=== PATIENT | female | born 2000 | race Caucasian/White ===

== ENCOUNTER 2022-10-30 10:14 | Outpatient (CLI) | payer OTHER, MEDICAID, SELFPAY ==
[2022-10-30 13:42] LABS: Clue Cells >20% Clue Cells Seen (None Seen); Trichomonas No Trichomonas Seen (None Seen); Yeast No Yeast Seen (None Seen)
[2022-10-30 15:02] LABS: GC DNA Amplified* NOT DETECTED (No Detected)
[2022-10-30 16:29] LABS: Chlamydia DNA Amplified* DETECTED (No Detected)
== END 2022-10-30 10:15 | disposition home or self-care (01) ==
PROVIDERS: PCP Family Medicine; Visit Provider Family Medicine
DX: N89.8 Other specified noninflammatory disorders of vagina (principal); Z11.3 Encounter for screening for infections with a predominantly sexual mode of transmission
CPT/HCPCS: 80048; 84443; 85025; 87210; 87491; 87591

== ENCOUNTER 2023-11-19 10:52 | Outpatient (CLI) | payer OTHER, MEDICAID, SELFPAY ==
--- OUTSIDE RECORDS SUMMARY | 2023-11-19 10:56 | XMS_ITS | Encounter Summary ---
Author Organization [facility] Address [address] [place] [address] Care Team Providers Care Dike Supervisor Name Role Phone Breezy Brown MD Primary Care Provider Augustine Penn MD Unavailable Zachary Boo MD Unavailable Steffany Ortega RN Unavailable [phone] Natalie Bolivar NP Unavailable Jules Miller MD Unavailable [phone] Natalie Bolivar NP Unavailable Reason for Visit * Reason Onset Date Comments Prior Auth - Medication 03/10/2023 DEXCOM G 6 TRANSMITTER- DENIED Encounter Details Date Type Department Care Team (Late st Contact Info) Description 03/10/2023 [facility] [place] [address] [facility] [facility] [address] [place] [address] Natalie Bolivar ALTERATION TAILOR [address] [place] [address] Prior Auth - Medication (DEXCOM G6 TRANSMITTER- DENIED ) Social History Tobacco Use Types Packs/Day Years Used Date Smoking Tobacco: Never Smokeless Tobacco: Never Alcohol Use Standard Drinks/Week Comments Not Asked 0 (1 standard drink = 0.6 oz pur e alcohol) PHQ-2 Answer Date Recorded PHQ-2 Score 0 06/28/2022 Adolescent Education Answer Date Record ed Getting School Help Needed Not on file 02/02 Sex and Gender Information Value Date Recorded Sex Assigned at Female 04/03/2022 9:46 AM STAFF TOXICOLOGIST Gender Identity Female 04/03/2022 9:46 AM STAFF TOXICOLOGIST Sexual Orientation Straight 04/03/2022 9: 46 AM STAFF TOXICOLOGIST documented as of this encounter Miscellaneous Notes * Telephone Encounter - Fadi Mckeon - 03/12/2023 3:54 PM CDT Images from the original note were not included. PRIOR AUTHORIZATION DENIED Medication: DEXCOM G6 TRANSMITTER [facility] [place] Company[facility] [employer] [facility] - Denial Date: 03/12/2023 Denial Rational: Not covered under the pt's pharmacy benefit. Appeal Information: If provider would like to appeal please provide a letter of medical necessity. * Telephone Encounter - Fadi Mckeon - 03/12/2023 2:59 PM CDT Images from the original note were not included. Central Prior Authorization Team PA Initiation Medication: DEXCOM G6 TRANSMITTER [facility] Insurance Company: [employer] ([facility]) - Pharmacy Filling the Rx: [facility] [place], [place] - [address] Filling Pharmacy Filling Pharmacy Fax: Start Date: 03/12/2023 * Telephone Encounter - Stephanie Prasad - 03/10/2023 9:49 AM CDT Images from the original note were not included. documented in this encounter Plan of Treatment Not on file documented as of this encounter Visit Diagnoses Not on filedocumented in this encounter Care Teams Dike Supervisor Relationship Specialty Start Date End Date Breezy Brown MD PCP - General Family Practice 02/09/22 Augustine Penn MD [address] [address] Pediatrics 03/04/16 Zachary Boo MD 6 [place] [address] Dermatology 03/04/16 Steffany Ortega, RONNELL Nurse Coordinator 03/04/16 Natalie Bolivar, ALTERATION TAILOR [address] [place] [address] Assigned Pediatric Specialist Provider 03/11/21 06/04/23 Jules Miller MD [address] [address] Assigned PCP 04/13/22 06/04/23 Natalie Bolivar, ALTERATION TAILOR [address] [place] [address] Assigned Pediatric Specialist Provider 06/13/23 documented as of this encounter
--- OUTSIDE RECORDS SUMMARY | 2023-11-19 10:56 | XMS_ITS | Encounter Summary ---
Author Organization [facility] Address [address] [place] [address]. [place] [address] Care Team Providers Care Typing Bookkeeper Name Role Phone Breezy Brown MD Primary Care Provider Augustine Penn MD Unavailable [phone] Zachary Boo MD Unavailable [phone] Steffany Ortega RN Unavailable [phone] Natalie Bolivar NP Unavailable [phone] Jules Miller MD Unavailable [phone] Jules Miller MD Unavailable [phone] Natalie Bolivar NP Unavailable [phone] Reason for Visit * Reason Onset Date Comments Refill Request 03/05/2022 Encounter Details Date Type Department Care Team (Late st Contact Info) Description 03/05/2022 [facility] [place] [address] [facility] [address] [place] [address] Jules Miller MD [address] [place] [address] [address] [place] [address] Refill Request Social History Tobacco Use Types Packs/Day Years Used Date Smoking Tobacco: Never Smokeless Tobacco: Never Alcohol Use Standard Drinks/Week Comments Not Asked 0 (1 standard drink = 0.6 oz pur e alcohol) PHQ-2 Answer Date Recorded PHQ-2 Score 0 07/25/2020 Sex and Gender Information Value Date Recorded Sex Assigned at Female 04/03/2022 9:46 AM DECATIZER Gender Identity Female 04/03/2022 9:46 AM DECATIZER Sexual Orientation Straight 04/03/2022 9: 46 AM DECATIZER documented as of this encounter Plan of Treatment Not on file documented as of this encounter Visit Diagnoses Not on filedocumented in this encounter Care Teams Typing Bookkeeper Relationship Specialty Start Date End Date Breezy Brown MD PCP - General Family Practice 02/09/22 Augustine Penn MD [address] [address] Pediatrics 03/04/16 Zachary Boo MD [address] [place], [place] [address] Dermatology 03/04/16 Steffany Ortega, RN Nurse Coordinator 03/04/16 Natalie Bolivar NP [address] [place] [address] Assigned Pediatric Specialist Provider 03/11/21 06/04/23 Jules Miller MD [address] [id number] Assigned PCP 03/04/21 04/12/22 Jules Miller MD [address] [address] Assigned PCP 04/13/22 06/04/23 Natalie Bolivar NP [address] [place] [address] Assigned Pediatric Specialist Provider 06/13/23 documented as of this encounter
--- OUTSIDE RECORDS SUMMARY | 2023-11-19 10:56 | XMS_ITS | Encounter Summary ---
Author Organization [place] Address [address] [place] [address] Care Team Providers Care Ux Information Architect Name Role Phone Breezy Brown MD Primary Care Provider Augustine Penn MD Unavailable Zachary Boo MD Unavailable Steffany Ortega RN Unavailable [phone] Natalie Bolivar NP Unavailable [phone] Jules Miller MD Unavailable [phone] Natalie Bolivar NP Unavailable Encounter Details Date Type Department Care Team (Late st Contact Info) Description 06/28/2022 [facility] [place] [address] [facility] [address] [place] [address] Natalie Bolivar, FINISHING TRIMMER [address] [place] [address] Social History Tobacco Use Types Packs/Day Years Used Date Smoking Tobacco: Never Smokeless Tobacco: Never Alcohol Use Standard Drinks/Week Comments Not Asked 0 (1 standard drink = 0.6 oz pur e alcohol) PHQ-2 Answer Date Recorded PHQ-2 Score 0 06/28/2022 Sex and Gender Information Value Date Recorded Sex Assigned at Female 04/03/2022 9:46 AM RADIOTELEPHONE TECHNICAL OPERATOR Gender Identity Female 04/03/2022 9:46 AM RADIOTELEPHONE TECHNICAL OPERATOR Sexual Orientation Straight 04/03/2022 9: 46 AM RADIOTELEPHONE TECHNICAL OPERATOR COVID-19 Exposure Response Date Recorded In the last 10 days, have yo u been in contact with someone who was confirmed or suspected to have Coronavirus/COVID-19? No / Unsure 06/28/2022 10:58 AM RADIOTELEPHONE TECHNICAL OPERATOR documented as of this encounter Plan of Treatment Not on file documented as of this encounter Visit Diagnoses Not on filedocumented in this encounter Care Teams Ux Information Architect Relationship Specialty Start Date End Date Breezy Brown MD PCP - General Family Practice 02/09/22 Augustine Penn MD [address] [place] [id number] Pediatrics 03/04/16 Zachary Boo MD 6 [place], [place] [address] Dermatology 03/04/16 Steffany Ortega RN Nurse Coordinator 03/04/16 Natalie Bolivar FINISHING TRIMMER [address] [place] [address] Assigned Pediatric Specialist Provider 03/11/21 06/04/23 Jules Miller MD [address] [address] Assigned PCP 04/13/22 06/04/23 Natalie Bolivar FINISHING TRIMMER [address] [place] [address] Assigned Pediatric Specialist Provider 06/13/23 documented as of this encounter
--- OUTSIDE RECORDS SUMMARY | 2023-11-19 10:56 | XMS_ITS | Clinical Summary ---
Author Organization [facility] Address [place], [place] [address] Care Team Providers Care Relations Specialist Name Role Phone Augustine Penn MD Unavailable Chastity Cardenas OD Unavailable [phone] Pcp, No Primary Care Provider Unavailabl e Allergies Active Allergy Reactions Criticality Noted Date Comments Lactose 10/13/2008 Medications Medication Sig Dispensed Refills Start Date End Date Status cetirizine (ZYRTEC) 10 mg tabletIndications:A llergic rhinitis TAKE ONE TABLET BY MOUTH EVERY DAY 90 tablet 2 09/12/2017 Active ARIPiprazole (ABILIFY) 5 mg tabletIndications:M ood disorder (HC) Take 1 tablet by mouth once daily. 30 tablet 2 02/26/2019 Active Additional Information Patient taking differently: 2 mgOral DAILY, Reported on 12/16/2022 Ketone Blood Test strp Check for ketones when two consecutive blood sugars are greater than 300 and/or at time of sickness/vomiting 05/27/2018 Active glucagon 3 mg/actuation spry Inhale 3 mg in the nostril(s). 04/20/2019 Active LANTUS SOLOSTAR U-100 INSULIN 100 unit/mL (3 mL) pen INJECT 30 UNITS DAILY WHEN OFF OF INSULIN PUMP 01/07/2020 Active Insulin [place], Disposable, (CHAU PEN NEEDLE) 32 gauge x 5/32 Use 6 daily or as directed. 12/03/2019 Active lisdexamfetamine (VYVANSE) 40 mg capsuleIndications: attention-deficit hyperactivity disorder Take 40 mg by mouth once daily.Indications: attention deficit disorder with hyperactivity Active levothyroxine (SYNTHROID) 112 mcg tablet Take 56 mcg by mouth once daily. 07/27/2020 Active norgestimate-ethiny l estradiol, 0.25-35 mg-mcg, (ORTHO-CYCLEN) 0.25-35 mg-mcg tablet Take 1 Tablet by mouth once daily. 07/29/2020 Active Vyvanse 10 mg capsule TAKE ONE CAPSULE BY MOUTH EVERY DAY FOR 30 DAYS 04/05/2022 Active venlafaxine (EFFEXOR XR) 150 mg Extended-Release capsule Take 150 mg by mouth. 04/03/2022 Active insulin lispro, U-100, (HUMALOG KWIKPEN; ADMELOG SOLOSTAR) 100 unit/mL inpn pen Inject 100 units subcutaneous each time if needed (When she eats). Her pump gives her insulin continuously. 11/27/2022 Active ondansetron (ZOFRAN) 4 mg tabletIndications:N ausea and vomiting due to hyperglycemia Take 1 Tablet (4 mg) by mouth every 8 hours if needed for Nausea/Vomiting. 5 Tablet 1 01/01/2023 Active Active Problems Problem Noted Date Diagnosed Date Controlled substance agreement signed 09/14/2018 Overview: Signed 09/14/18 Yael Vazquez Psychiatry Adjustment disorder with mix ed disturbance of emotions and conduct 12/01/2017 Mood disorder 10/09/2017 Type 1 diabetes mellitus without complication Overview: onset age 7-Dr Augustine Penn [facility] Attention deficit hyperactiv ity disorder (ADHD), combined type 06/13/2015 Hypothyroidism 03/23/2015 Empty sella syndrome 11/09/2013 Delayed growth and development 02/21/2013 Growth hormone deficiency 02/21/2013 Chronic constipation 01/14/2012 Adjustment disorder with mixed anxiety and depre ssed mood 04/15/2008 Overview: Bianca Ortega therapist in [place] Lactose intolerance Overview: endoscopy-neg for celiac Resolved Problems Problem Noted Date Diagnosed Date Resolved Date Heart murmur 01/08/2016 11/27/2016 Overview: Has had echocardiogram, EKG and seen Cardiology 01/2010 Skin lesion 11/28/2015 11/27/2016 Overview: Overview: 02/24 - 1.4 X 0.8 cm 11/28/15 - 1.5 X 1.0 cm DM type 1 (diabetes mellitus, type 1) 06/25/2013 06/13/2015 Unspecified hyperkinetic syn drome of childhood 04/28/2008 06/13/2015 Overview: Continue to evaluate further for ADHD when diabetes management is stable Diabetes mellitus, type 1 04/03/2008 Overview: onset age 7-Dr Augustine Penn [facility] a system change updated this record. This will not affect patient care or billing. This comment can be deleted. Immunizations Name Administration Dates Next Due AMB Influenza, IIV3 (Age >=3 years)(Flu Clinic Only) 03/01/2011,02/17/2009,03/18/2008 DTaP 01/10/2006, 3,02/03/2002,11/30,2001 HIB PRP-OMP (PedvaxHIB) 11/11/2002,05/13,2001,10/01 Hepatitis A (Peds) 02/25/2013,08/18/2012 Hepatitis B (Peds) 10/19/2012, 3,2001,10/01 Human Papilloma Virus Vaccine 11/11/2014, 013,10/19/2012 Inactivated Polio Vaccine 01/10/2006,,2001,10/01 Influenza, IIV3 (Age >=3 years) 02/25/2013,03/16 Influenza, IIV4 05/01/2017, 6,03/03/2015,04/06 MMR 01/10/2006,11/11/2002 Meningococcal Vaccine (Menveo) 02/25/2013 Pneumococcal conj 7-Valent (Prevnar 7) 0 11/11/2002,02/03/2002,2001,10/01 Tdap 10/19/2012 Varicella Vaccine 08/18/2012,12/18/2009 Family History Medical History Relation Name Comments Thyroid Disease Maternal Grandmother Diabetes Maternal Uncle 1 Diabetes Maternal Uncle 2 Thyroid Disease Mother Hypo Relation Name Status Comments Brother Alive Father Alive Maternal Grandmother Maternal Uncle 1 Maternal Uncle 2 Mother Alive Sister Alive Social History Tobacco Use Types Packs/Day Years Used Date Smoking Tobacco: Never Smokeless Tobacco: Never Tobacco Cessation:Counseling Given: Yes Alcohol Use Standard Drinks/Week Comments No 0 (1 standard drink = 0.6 oz pur e alcohol) PHQ-2 Answer Date Recorded PHQ-2 Score 1 02/26/2019 Sex and Gender Information Value Date Recorded Sex Assigned at Not on file Gender Identity Not on file Sexual Orientation Not on file Obstetrics History Last Filed Vital Signs Vital Sign Reading Time Taken Comments Blood Pressure 129/70 01/01/2023 5:32 PM CDT Pulse 90 01/01/2023 5:32 PM CDT Temperature 36.4 ??C (97.6 ??F) 01/01/2023 1:16 PM CD T Respiratory Rate 19 01/01/2023 1:16 PM CDT Oxygen Saturation 95% 01/01/2023 5:32 PM CDT Inhaled Oxygen Concentration - - Weight 64 kg (141 lb) 01/01/2023 1:16 PM CDT Height 162.6 cm (5' 4) 01/01/2023 1:16 PM CDT Body Mass Index 24.2 01/01/2023 1:16 PM CDT Plan of Treatment Health Maintenance Due Date Last Done Comments BMI (ht and wt on same day) for age 18+ 08/01/2019 Depression screening for age 12+ 02/27/2020 02/26/2019, 01/12/2019, 09/14/2018, Additional history exists Chlamydia for age 16-24 05/01/2021 05/01/2020 Tetanus booster 10/19/2022 10/19/2012 COVID-19 vaccine series ( season) 2023 09/06/2020, 08/09/2020 Influenza for age 9-49 01/11/2024 7, 02/07/2016, 03/03/2015, Additional history exists Pap test for age 21-65 10/30/2025 10/30/2022, 2022 Pneumococcal series for age 6-64 Aged Out 11/11/2002, 02/03/2002, 2001, Additional history exists No longer eligible based on patient's age to complete this topic HIV for age 15-65 Completed 08/18/2012 Hepatitis C screening for age 18-79 Completed 08/18/2012 Tdap Completed 10/19/2012 HPV series for age 9-26 Completed 11/12/19 15, 02/25/2013, 10/19/2012 Procedures Procedure Name Priority Date/Time Associated Diagnosis Comments HPV THIN PREP Routine 10/30/2022 10:00 AM CDT GC CHLAMYDIA TRACH PROBE Routine 05/01/2020 1:[address] CLERK ANTI HIV 1/2 Routine 08/18/2012 10:33 AM CDT Needlestick injury accident ANTI HCV Routine 08/18/2012 10:33 AM CDT Needlestick injury accident from Last 3 Months or Most Recently Relevant to Health Maintenance Results * (ABNORMAL) HPV HIGH RISK (10/30/2022 10:00 AM CDT) TYPE 16 Negative Negative 11/06/2022 2:06 PM CDT [facility] TYPE 18 Negative Negative 11/06/2022 2:06 PM CDT [facility] OTHER HIGH RISK TYPES Positive(A) Negative 11/06/2022 2:06 PM CDT [facility] Other (Cervical/Vagina l) 10/30/2022 10:00 AM CDT 11/01/2022 9:39 AM CDT [facility] - 11/06/2022 2:06 PM CDT Specimen is positive for the DNA of any one of, or combination of, the following high risk HPV types: 31, 33, 35, 39, 45, 51, 52, 56, 58, 59, 66, 68. HPV types 16 and 18 DNA were undetectable or below the pre-set threshold. ? Methodology: Guy Angelina 4800 HPV Test Breezy Brown MD MICROBIOLOGY [facility] [address] [place] [address], * GC CHLAMYDIA TRACH PROBE (05/01/2020 1:[address] CLERK) CHLAMYDIA PROBE Negative 0 11:[address]ERK [facility] N GONORRHOEAE PROBE Negative 05/03/2020 11:[address] CLERK [facility] Other VAGINAL SWAB / Unknown Client Collect / Unknown 05/01/2020 1:[address] CLERK 05/02/2020 4:[address] CLERK Breezy Brown MD MICROBIOLOGY Performing Organization Address City/[facility]/ZIP Co de Phone Number [facility] [address] [place] [address], [place] * ANTI HCV (08/18/2012 10:33 AM CDT) ANTI HCV Non-reacti ve [facility] Blood specimen (specimen) BLOOD SPECIMEN / Unknown 08/18/2012 10:33 AM CDT 08/18/2012 10:22 AM CDT Wen Wesley NP SEND OUTS [facility] INTERNAL ZIP [address] [place] [address] * ANTI HIV 1/2 (08/18/2012 10:33 AM CDT) ANTI HIV 1/2 Non-reacti ve [facility] Blood specimen (specimen) BLOOD SPECIMEN / Unknown 08/18/2012 10:33 AM CDT 08/18/2012 10:22 AM CDT Wen [place] [employer] LIBRARIAN SEND OUTS [facility] INTERNAL ZIP [address] [place] [address] from Last 3 Months or Most Recently Relevant to Health Maintenance Advance Directives * Full Code (Latest Code Status on File) Date Activated Date Inactivated Comments 04/13/2015 9:11 AM 04/13/2015 4:52 PM Question Answer Comments Code Status Discussion: Not Discussed Care Teams Relations Specialist Relationship Specialty Start Date End Date Pcp, No . PCP - General 05/22/18 Augustine Penn MD Provider Endocrinology 01/02/12 Chastity Cardenas ADELAIDE Provider Office Assistant Receptionist 10/13/08
--- OUTSIDE RECORDS SUMMARY | 2023-11-19 10:56 | XMS_ITS | Encounter Summary ---
Author Organization [facility] Address [address] [place] [address] Care Team Providers Care Torpedo Shooter Name Role Phone Breezy Brown MD Primary Care Provider [phone] Jakub Chapin MD Primary Care Provider [phone] Breezy Brown MD Primary Care Provider [phone] Breezy Brown MD Unavailable [phone] Augustine Penn MD Unavailable [phone] Zachary Boo MD Unavailable Steffany Ortega RN Unavailable [phone] Natalie Bolivar NP Unavailable [phone] Augustine Penn MD Unavailable [phone] Jules Miller MD Unavailable [phone] Augustine Penn MD Unavailable [phone] Natalie Bolivar NP Unavailable [phone] Jules Miller MD Unavailable [phone] Jules Miller MD Unavailable [phone] Natalie Bolivar NP Unavailable [phone] Encounter Details Date Type Department Care Team (Late st Contact Info) Description 01/18/2020 MyC Medical Advice [facility] [place] [address] [facility] [address] [place] [address] Augustine Penn MD [address] [place] [address] Social History Tobacco Use Types Packs/Day Years Used Date Smoking Tobacco: Never Smokeless Tobacco: Never Alcohol Use Standard Drinks/Week Comments Not Asked 0 (1 standard drink = 0.6 oz pur e alcohol) PHQ-2 Answer Date Recorded PHQ-2 Score 0 04/20/2019 Sex and Gender Information Value Date Recorded Sex Assigned at Female 04/03/2022 9:46 AM CONSTRUCTION PROJECT MGR Gender Identity Female 04/03/2022 9:46 AM CONSTRUCTION PROJECT MGR Sexual Orientation Straight 04/03/2022 9: 46 AM CONSTRUCTION PROJECT MGR COVID-19 Exposure Response Date Recorded In the last month, have you been in contact with someone who was confirmed or suspected to have Coronavirus / COVID-19? No / Unsure 01/13/2020 12:24 PM CDT documented as of this encounter Plan of Treatment Not on file documented as of this encounter Visit Diagnoses Not on filedocumented in this encounter Care Teams Torpedo Shooter Relationship Specialty Start Date End Date Breezy Brown MD PCP - General Family Practice 11/25/16 07/03/21 Jakub Chapin MD PCP - General Family Medicine 07/04/21 02/08/22 Breezy Brown MD PCP - General Family Practice 02/09/22 Breezy Brown MD Family Practice 07/04/21 02/08/22 Augustine Penn MD [address] [address] Pediatrics 03/04/16 Zachary Boo MD [address] [place] [address] Dermatology 03/04/16 Steffany Ortega, RONNELL Nurse Coordinator 03/04/16 Natalie Bolivar, SKIP LOAD DRIVER [address] [place] [address] Assigned Pediatric Specialist Provider 03/03/20 01/20/21 Augustine Penn MD [address] [address] Assigned PCP 03/31/20 06/10/20 Jules Miller MD [address] [place] [address] Assigned PCP 06/11/20 08/19/20 Augustine Penn MD [address] [address] Assigned PCP 08/20/20 03/03/21 Natalie Bolivar, SKIP LOAD DRIVER [address] [place] [address] Assigned Pediatric Specialist Provider 03/11/21 06/04/23 Jules Miller MD [address] [place] [address] Assigned PCP 03/04/21 04/12/22 Jules Miller MD [address] [facility] [address] [place] [address] Assigned PCP 04/13/22 06/04/23 Natalie Bolivar NP [address] [place] [address] Assigned Pediatric Specialist Provider 06/13/23 documented as of this encounter
--- OUTSIDE RECORDS SUMMARY | 2023-11-19 10:56 | XMS_ITS | Clinical Summary ---
Author Organization [facility] Address [address] [place] [address] Care Team Providers Care X Ray Physician Name Role Phone Breezy Brown MD Primary Care Provider Augustine Penn MD Unavailable Zachary Boo MD Unavailable [phone] Steffany Ortega RN Unavailable [phone] Natalie Bolivar NP Unavailable [phone] Allergies Active Allergy Reactions Criticality Noted Date Comments Lactose 01/14/2012 Seasonal Allergies Other (See Comments) 016 Itchy, watery eyes, sneezing, runny nose Medications Medication Sig Dispensed Refills Start Date End Date Status Multiple Vitamin (MULTI-VITAMIN PO) Take 1 tablet by mouth daily. Active Ostomy Supplies (BARD ADHESIVE/FILM REMOVER) MISCIndications:Ty pe I (juvenile type) diabetes mellitus without mention of complication, not stated as uncontrolled 45 each every other day For use with insulin pump site removal every 2 days. 45 each 3 02/12/2013 Active Ostomy Supplies (SKIN PREP WIPES) MISCIndications:Ty pe I (juvenile type) diabetes mellitus without mention of complication, not stated as uncontrolled Apply 45 each topically every other day IV skin prep for use prior to pump site changes every 2 days 45 mL 3 02/12/2013 Active Transparent Dressings (OPSITE IV 3000) MISCIndications:Ty pe I (juvenile type) diabetes mellitus without mention of complication, not stated as uncontrolled For use with insulin pump site changes every 2 days 45 each 3 05/27/2014 Active blood glucose monitoring (ACCU-CHEK MULTICLIX) lancetsIndications :Type 1 diabetes mellitus with hyperglycemia (H) Use to test blood sugar 8 times daily or as directed. 3 Box 12 07/12/2015 Active insulin syringe-needle U-100 (B-D INSULIN SYRINGE HALF-UNIT) 31G X 5/16 0.3 MLIndications:Type 1 diabetes mellitus with hyperglycemia (H) Use 6 syringes daily or as directed. 200 each 12/11/2015 Active cetirizine (ZYRTEC) 10 MG tablet Take 10 mg by mouth daily Active glucagon (GLUCAGON EMERGENCY) 1 MG kitIndications:Typ e 1 diabetes mellitus with hyperglycemia (H) Inject 1 mg into the muscle once for 1 dose For unconscious hypoglycemia only - dispense 3 kits (2 home and 1 school) 3 each 1 08/06/2017 Active ONETOUCH ULTRA test stripIndications:T ype 1 diabetes mellitus with hyperglycemia (H) Use to test blood sugars 8 times daily or as directed. 250 strip 11 08/18/2017 Active ketone blood test (PRECISION XTRA KETONE) STRPIndications:Ty pe 1 diabetes mellitus with hyperglycemia (H) Check for ketones when two consecutive blood sugars are greater than 300 and/or at time of sickness/vomiting 20 each 05/27/2018 Active insulin glargine (BASAGLAR KWIKPEN) 100 UNIT/ML penIndications:Typ e 1 diabetes mellitus with hyperglycemia (H) Inject 30 units daily when off of insulin pump. 15 mL 08/25/2019 Active insulin pen needle (BD CHAU U/F) 32G X 4 MM miscellaneousIndic ations:Type 1 diabetes mellitus with hyperglycemia (H) Use 6 daily or as directed. 200 each 12/03/2019 Active NOVOLOG PENFILL 100 UNIT/ML solnIndications:Ty pe 1 diabetes mellitus with hyperglycemia (H) Using up to 95 units/day via the insulin pump 30 mL 6 06/07/2021 Active insulin lispro (HUMALOG) 100 UNIT/ML CartridgeIndicatio ns:Type 1 diabetes mellitus with hyperglycemia (H) Using up to 120 units per day via insulin pump. 45 mL 11 06/13/2021 Active blood glucose monitoring (SOFTCLIX) lancetsIndications :Type 1 diabetes mellitus with hyperglycemia (H) Use to test blood sugar 7 times daily. 100 each 11 07/20/2021 Active insulin pen needle (32G X 4 MM) 32G X 4 MM miscellaneousIndic ations:Type 1 diabetes mellitus with hyperglycemia (H) Use 5 pen needles daily or as directed. 200 each 08/05/2021 Active insulin syringe-needle U-100 (BD INSULIN SYRINGE ULTRAFINE) 31G X 5/16 0.3 ML miscellaneousIndic ations:Type 1 diabetes mellitus with hyperglycemia (H) Use 5 syringes daily or as directed. 100 each 08/05/2021 Active venlafaxine (EFFEXOR XR) 150 MG 24 hr capsuleIndications :Mood disorder (H24) Take 1 capsule (150 mg) by mouth daily 90 capsule 3 04/03/2022 Active ARIPiprazole (ABILIFY) 2 MG tabletIndications: Mood disorder (H24) Take 1 tablet (2 mg) by mouth daily 30 tablet 1 05/29/2022 Active Glucagon (BAQSIMI TWO PACK) 3 MG/DOSE POWDIndications:Ty pe 1 diabetes mellitus with hyperglycemia (H) [place] 1 spray (3 mg) in nostril as needed (unresponsive hypoglycemia) 1 each 3 06/28/2022 Active acetone urine (KETOSTIX) test stripIndications:T ype 1 diabetes mellitus with hyperglycemia (H) Patient to test when blood glucose is >250x2 or when sick and vomiting 50 strip 6 06/28/2022 Active levothyroxine (SYNTHROID/LEVOTHR OID) 112 MCG tabletIndications: Trini's thyroiditis Take 0.5 tablets (56 mcg) by mouth daily 45 tablet 3 06/28/2022 Active insulin lispro (HUMALOG KWIKPEN) 100 UNIT/ML (1 unit dial) KWIKPENIndications :Type 1 diabetes mellitus with hyperglycemia (H) Up to 100 units per day 30 mL 3 11/27/2022 Active Continuous Blood Gluc Transmit (DEXCOM G6 TRANSMITTER) MISCIndications:Ty pe 1 diabetes mellitus with hyperglycemia (H) Change every 3 months. 1 each 3 03/06/2023 Active ACCU-CHEK GUIDE test stripIndications:T ype 1 diabetes mellitus with hyperglycemia (H) Use to test blood sugar 7 times daily or as directed. 200 strip 11 04/14/2023 Active Continuous Glucose Sensor (DEXCOM G6 SENSOR) MISCIndications:Ty pe 1 diabetes mellitus with hyperglycemia (H) Change every 10 days. 3 each 10/27/2023 Active Continuous Blood Gluc Sensor (DEXCOM G6 SENSOR) MISCIndications:Ty pe 1 diabetes mellitus with hyperglycemia (H) Change every 10 days. 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 Provider to review Encounters Date Type Department Care Team Description 10/27/2023 [facility] [place] [address] [place] [address] Natalie Bolivar, NATURAL HISTORY COLLECTIONS CURATOR Refill Request from Last 3 Months Immunizations Name Administration Dates Next Due DTAP (<7y) 01/10/2006, 3,02/03/2002,11/30,2001 HEPATITIS A (PEDS 12M-18Y) 02/25/2013,08/18/2012 HIB (PRP-T) 11/11/2002, 3,2001,10/01 Hepatitis B, Peds 10/19/2012, 3,2001,10/01 Hpv, Unspecified 11/11/2014,02/25/2013, 3 Influenza (IIV3) PF 02/25/2013, 2,03/01/2011,02/17,03/18/2008 Influenza Vaccine >6 months,quad, PF 02/26/2018 Influenza Vaccine, 6+MO IM (QUADRIVALENT W/PRESERVATIVES) 05/01/2017,02/07/2016,03/03/2015,04/06 MMR 01/10/2006,11/11/2002 Meningococcal ACWY (Menveo??) 02/25/2013 Pneumococcal (PCV 7) 11/11/2002,02/04/20 02,2001,10/01 Poliovirus, inactivated (IPV) 01/10/2006 ,08/05/2002,2001,10/01 Tdap (Adult) Unspecified Formulation 10/19/2012 Varicella 08/18/2012,12/18/2009 Family History Medical History Relation Comments Diabetes Type 1 Maternal Uncle 1 Kidney failure Maternal Uncle 1 Diabetes Type 1 Maternal Uncle 2 Relation Status Comments Maternal Uncle 1 Alive Maternal Uncle 2 Alive Social History Tobacco Use Types Packs/Day Years Used Date Smoking Tobacco: Never Smokeless Tobacco: Never Tobacco Cessation:Counseling Given: No Alcohol Use Standard Drinks/Week Comments Not Asked 0 (1 standard drink = 0.6 oz pur e alcohol) PHQ-2 Answer Date Recorded PHQ-2 Score 0 06/28/2022 Adolescent Education Answer Date Record ed Getting School Help Needed Not on file 02/02 Sex and Gender Information Value Date Recorded Sex Assigned at Female 04/03/2022 9:46 AM PROFESSIONAL NURSE Gender Identity Female 04/03/2022 9:46 AM PROFESSIONAL NURSE Sexual Orientation Straight 04/03/2022 9: 46 AM PROFESSIONAL NURSE Last Filed Vital Signs Vital Sign Reading Time Taken Comments Blood Pressure 72/38 06/28/2022 11:04 AM PROFESSIONAL NURSE Pulse 91 06/28/2022 11:04 AM PROFESSIONAL NURSE Temperature 36.7 ??C (98.1 ??F) 03/15/2013 1:02 PM CS T Respiratory Rate 16 03/15/2013 1:02 PM PROFESSIONAL NURSE Oxygen Saturation 100% 03/15/2013 7:22 AM PROFESSIONAL NURSE Inhaled Oxygen Concentration - - Weight 63.3 kg (139 lb 8.8 oz) 06/28/2022 11:04 AM PROFESSIONAL NURSE Height 164.5 cm (5' 4.76) 06/28/2022 11:[address] Body Mass Index 23.39 06/28/2022 11:04 AM PROFESSIONAL NURSE Plan of Treatment Health Maintenance Due Date Last Done Comments ADVANCE CARE PLANNING 2001 ANNUAL REVIEW OF HM ORDERS 2001 CHLAMYDIA SCREENING 2001 DIABETIC FOOT EXAM 2001 Pneumococcal Vaccine: Pediatrics (0 to 5 Years) and At-Risk Patients (6 to 64 Years) (1 of 2 - PCV) 08/01/2007 11/11/2002, 02/03/2002, 2001, Additional history exists BMP 09/16/2009 09/16/2008 HIV SCREENING 2016 EYE EXAM 05/22/2019 05/22/2018, 05/12, 01/08/2017, Additional history exists HEPATITIS C SCREENING 08/01/2019 YEARLY PREVENTIVE VISIT 05/22/2021 05/22/2020 PAP 2022 A1C 09/25/2022 06/28/2022, 02/10, 07/25/2020, Additional history exists DTAP/TDAP/TD IMMUNIZATION (7 - Td or Tdap) 10/19/2022 10/19/2012, 10/19/2012, 01/10/2006, Additional history exists COVID-19 Vaccine (2022- season) 2023 09/06/2020, 08/09/2020 PHQ-2 (once per calendar year) 2023 06/28/2022, 07/25/2020, 07/20/2019, Additional history exists LIPID 06/28/2023 06/28/2022, 09/0 07/2018, 11/22/2014, Additional history exists MICROALBUMIN 06/28/2023 06/28/2022, 02/10, 01/03/2020, Additional history exists TSH W/FREE T4 REFLEX 06/28/2023 06/28/2022, 06/28/2022, 03/06/2021, Additional history exists INFLUENZA VACCINE (#1) 2024 0, 04/05/2019, 02/26/2018, Additional history exists IPV IMMUNIZATION Completed 01/10/2006, , 2001, Additional history exists HEPATITIS B IMMUNIZATION Completed 013, 05/13/2002, 05/13/2002, Additional history exists MENINGITIS IMMUNIZATION Aged Out 02/25/2013 No l onger eligible based on patient's age to complete this topic HPV IMMUNIZATION Completed 11/11/2014, 07/2014, 02/25/2013, Additional history exists RSV MONOCLONAL ANTIBODY Aged Out No l onger eligible based on patient's age to complete this topic Procedures Procedure Name Priority Date/Time Associated Diagnosis Comments T4 FREE Routine 06/28/2022 12:15 PM PROFESSIONAL NURSE Type 1 diabetes mellitus with hyperglycemia (H) ALBUMIN RANDOM URINE QUANTITATIVE Routine 06/28/2022 12:15 PM PROFESSIONAL NURSE Type 1 diabetes mellitus with hyperglycemia (H) LIPID PROFILE Routine 06/28/2022 12:15 PM PROFESSIONAL NURSE Type 1 diabetes mellitus with hyperglycemia (H) HEMOGLOBIN A1C POCT Routine 06/28/2022 1 1:01 AM PROFESSIONAL NURSE Type 1 diabetes mellitus with hyperglycemia (H) EYE EXAM - HIM SCAN 05/22/2018 1 2:00 AM PROFESSIONAL NURSE BASIC METABOLIC PANEL Routine 09/16/2008 11:31 AM CDT from Last 3 Months or Most Recently Relevant to Health Maintenance Results * T4 free (06/28/2022 12:15 PM PROFESSIONAL NURSE) Free T4 1.63 0.90 - 1.70 ng/dL 06/28/2022 12:51 PM PROFESSIONAL NURSE [facility] Blood STRUCTURE OF RIGHT UPPER LIMB / Unknown Venipuncture / Unknown 06/28/2022 12:15 PM PROFESSIONAL NURSE 06/28/2022 12:15 PM PROFESSIONAL NURSE Natalie Bolivar NP LAB - BLOOD ORDERAB LES [facility] [address] Lab (1st floor, no room number) [place] [address], [facility] [phone] * Albumin Random Urine Quantitative with Creat Ratio (06/28/2022 12:15 PM PROFESSIONAL NURSE) Pathologist [facility] Creatinine Urine mg/dL 58.0 mg/dL 06/28/2022 7:25 PM PROFESSIONAL NURSE [facility] Comment:The reference ranges have not been established in urine creatinine. The results should be integrated into the clinical context for interpretation. Albumin Urine mg/L <12.0 mg/L 2022 7:25 PM PROFESSIONAL NURSE [facility] Comment:The reference ranges have not been established in urine albumin. The results should be integrated into the clinical context for interpretation. Albumin Urine mg/g Cr 06/28/2022 7:25 PM PROFESSIONAL NURSE [facility] Comment: Unable to calculate, urine albumin and/or urine creatinine is outside detectable limits. Microalbuminuria is defined as an albumin:creatinine ratio of 17 to 299 for males and 25 to 299 for females. A ratio of albumin:creatinine of 300 or higher is indicative of overt proteinuria. Due to biologic variability, positive results should be confirmed by a second, first-morning random or 24-hour timed urine specimen. If there is discrepancy, a third specimen is recommended. When 2 out of 3 results are in the microalbuminuria range, this is evidence for incipient nephropathy and warrants increased efforts at glucose control, blood pressure control, and institution of therapy with an fxhcyntdbji-amanvccilw-wzxbqx (TIFFANIE) inhibitor (if the patient can tolerate it). ?? Urine MID-STREAM URINE SPECIMEN / Unknown Non-blood Collection / Unknown 06/28/2022 12:15 PM PROFESSIONAL NURSE 06/28/2022 12:26 PM PROFESSIONAL NURSE Natalie Bolivar NP LAB - URINE ORDERAB LES [facility] [address] [facility] [address], [address] [place] [id number], [facility] [phone] * (ABNORMAL) Lipid Profile (06/28/2022 12:15 PM PROFESSIONAL NURSE) Cholesterol 207(H) <200 mg/dL 06/28/2022 5:24 PM PROFESSIONAL NURSE [facility] Triglycerides 85 <150 mg/dL 06/28/2022 5:24 PM PROFESSIONAL NURSE [facility] Direct Measure HDL 69 >=50 mg/dL 06/28/2022 5:24 PM PROFESSIONAL NURSE [facility] LDL Cholesterol Calculated 121(H) <=100 mg/dL 06/28/2022 5:24 PM PROFESSIONAL NURSE [facility] Non HDL Cholesterol 138(H) <130 mg/dL 06/28/2022 5:24 PM PROFESSIONAL NURSE [facility] Blood STRUCTURE OF RIGHT UPPER LIMB / Unknown Venipuncture / Unknown 06/28/2022 12:15 PM PROFESSIONAL NURSE 06/28/2022 12:15 PM PROFESSIONAL NURSE Narrative [facility] - 06/28/2022 5:24 PM PROFESSIONAL NURSE Cholesterol Desirable: ??<200 mg/dL Triglycerides Normal: ??Less than 150 mg/dL Borderline High: ??150-199 mg/dL High: ??200-499 mg/dL Very High: ??Greater than or equal to 500 mg/dL Direct Measure HDL Female: ??Greater than or equal to 50 mg/dL Male: ??Greater than or equal to 40 mg/dL LDL Cholesterol Desirable: ??<100mg/dL Above Desirable: ??100-129 mg/dL Borderline High: ??130-159 mg/dL High: ??160-189 mg/dL Very High: ??>= 190 mg/dL Non HDL Cholesterol Desirable: ??130 mg/dL Above Desirable: ??130-159 mg/dL Borderline High: ??160-189 mg/dL High: ??190-219 mg/dL Very High: ??Greater than or equal to 220 mg/dL Natalie Bolivar NP LAB - BLOOD ORDERAB LES [facility] [address] [facility] [address] [facility], [address] [place] [address], [facility] [phone] * (ABNORMAL) Hemoglobin A1c POCT (06/28/2022 11:01 AM PROFESSIONAL NURSE) Hemoglobin A1C POCT 8.5 4.3 - <5.7 % Whole blood 06/28/2022 11:0 1 AM PROFESSIONAL NURSE Natalie Bolivar NP LAB - ENTER/EDIT PO CT * EYE EXAM - HIM SCAN (05/22/2018 12:00 AM PROFESSIONAL NURSE) 05/22/2018 Provider Outside OTHER * (ABNORMAL) Basic metabolic panel (09/16/2008 11:31 AM CDT) Sodium 139 133 - 143 mmol/L [facility] Potassium 3.7 3.4 - 5.3 mmol/L [facility] Chloride 104 96 - 110 mmol/L [facility] Carbon Dioxide 26 20 - 32 mmol/L [facility] Glucose 109(H) 60 - 99 mg/dL [facility] Urea Nitrogen 9 5 - 24 mg/dL [facility] Creatinine 0.35 0.15 - 0.53 mg/dL [facility] Comment:New IDMS-traceable c alibration beginning 09/10/07 GFR Estimate GFR not calculated, patient <16 years old. mL/min/1. 7m2 [facility] GFR Estimate If Black GFR not calculated, patient <16 years old. mL/min/1. 7m2 [facility] Calcium 10.0 8.7 - 10.8 mg/dL [facility] Anion Gap 8 6 - 17 mmol/L [facility] 09/16/2008 11:3 1 AM CDT 09/16/2008 11:27 AM CDT Brandi Garcia MD LAB - BLOOD ORDER [place] [facility] from Last 3 Months or Most Recently Relevant to Health Maintenance Care Teams X Ray Physician Relationship Specialty Start Date End Date Breezy Brown MD PCP - General Family Practice 02/09/22 Augustine Penn MD [address] [address] Pediatrics 03/04/16 Zachary Boo MD [address] [place] [address] Dermatology 03/04/16 Steffany Ortega, RONNELL Nurse Coordinator 03/04/16 Natalie Bolivar, NATURAL HISTORY COLLECTIONS CURATOR [address] [place] [address] Assigned Pediatric Specialist Provider 06/13/23
--- OUTSIDE RECORDS SUMMARY | 2023-11-19 10:56 | XMS_ITS | Encounter Summary ---
Author Organization [facility] Address [address] [place] [address] Care Team Providers Care Protection Mgr Name Role Phone Breezy Brown MD Primary Care Provider Augustine Penn MD Unavailable [phone] Zachary Boo MD Unavailable Steffany Ortega RN Unavailable [phone] Natalie Bolivar LEDGE MAN Unavailable [phone] Reason for Visit * Reason Onset Date Comments Refill Request 10/27/2023 Encounter Details Date Type Department Care Team (Late st Contact Info) Description 10/27/2023 [facility] [place] [address] [place] [address] Natalie Bolivar LEDGE MAN [address] [place] [address] Refill Request Social History Tobacco Use Types [...] Sex Assigned at Female 04/03/2022 9:46 AM COLORED LEATHER SETTER Gender Identity Female 04/03/2022 9:46 AM COLORED LEATHER SETTER Sexual Orientation Straight 04/03/2022 9: 46 AM COLORED LEATHER SETTER documented as of this encounter Plan of Treatment Not on file documented as of this encounter Visit Diagnoses Diagnosis Type 1 diabetes mellitus with hyperglycemia (H) Type I (juvenile type) diabetes mellitus without mention of complication, not stated as uncontrolled documented in this encounter Care Teams Protection Mgr Relationship Specialty Start Date End Date Breezy Brown MD PCP - General Family Practice 02/09/22 Augustine Penn MD [address] [address] Pediatrics 03/04/16 Zachary Boo MD [address] [place] [address] Dermatology 03/04/16 Steffany Ortega, RONNELL Nurse Coordinator 03/04/16 Natalie Bolivar NP [address] [place] [address] Assigned Pediatric Specialist Provider 06/13/23 documented as of this encounter
--- OUTSIDE RECORDS SUMMARY | 2023-11-19 10:56 | XMS_ITS | Encounter Summary ---
Author Organization [facility] Address [address] [place] [address] Care Team Providers Care School Teacher Name Role Phone Breezy Brown MD Primary Care Provider [phone] Jakub Chapin MD Primary Care Provider [phone] Breezy Brown MD Primary Care Provider [phone] Breezy Brown MD Unavailable [phone] Augustine Penn MD Unavailable [phone] Zachary Boo MD Unavailable Steffany Ortega RN Unavailable [phone] Natalie Bolivar NP Unavailable [phone] Augustine Penn MD Unavailable [phone] Jules Miller MD Unavailable [phone] Augustine Penn MD Unavailable [phone] Natalie Bolivar NP Unavailable [phone] Jules Miller MD Unavailable [phone] Jlues Miller MD Unavailable [phone] Natalie Bolivar NP Unavailable [phone] Encounter Details Date Type Department Care Team (Late st Contact Info) Description 12/29/[address] [facility] [address] [place] [phone] Augustine Penn MD [address] [place] [address] Social History Tobacco Use Types Packs/Day Years Used Date Smoking Tobacco: Never Smokeless Tobacco: Never Alcohol Use Standard Drinks/Week Comments Not Asked 0 (1 standard drink = 0.6 oz pur e alcohol) PHQ-2 Answer Date Recorded PHQ-2 Score 0 04/20/2019 Sex and Gender Information Value Date Recorded Sex Assigned at Female 04/03/2022 9:46 AM RN CARE MANAGER Gender Identity Female 04/03/2022 9:46 AM RN CARE MANAGER Sexual Orientation Straight 04/03/2022 9: 46 AM RN CARE MANAGER documented as of this encounter Plan of Treatment Not on file documented as of this encounter Visit Diagnoses Not on filedocumented in this encounter Care Teams School Teacher Relationship Specialty Start Date End Date Breezy Brown MD PCP - General Family Practice 11/25/16 07/03/21 Jakub Chapin MD PCP - General Family Medicine 07/04/21 02/08/22 Breezy Brown MD PCP - General Family Practice 02/09/22 Breezy Brown MD Family Practice 07/04/21 02/08/22 Augustine Penn MD [address] [place] [address] Pediatrics 03/04/16 Zachary Boo MD [address] [place], [place] [address] Dermatology 03/04/16 Steffany Ortega, RN Nurse Coordinator 03/04/16 Natalie Bolivar, BUTTON BROACHER [address] [place] [address] Assigned Pediatric Specialist Provider 03/03/20 01/20/21 Augustine Penn MD [address] [place] [address] Assigned PCP 03/31/20 06/10/20 Jules Miller MD [address] [place] [address] Assigned PCP 06/11/20 08/19/20 Augustine Penn MD [address] [place] [address] Assigned PCP 08/20/20 03/03/21 Natalie Bolivar BUTTON BROACHER [address] [place] [address] Assigned Pediatric Specialist Provider 03/11/21 06/04/23 Jules Miller MD [address] [address] Assigned PCP 03/04/21 04/12/22 Jules Miller MD [address] [place] [address] Assigned PCP 04/13/22 06/04/23 Natalie Bolivar NP [address] [place] [address] Assigned Pediatric Specialist Provider 06/13/23 documented as of this encounter
--- OUTSIDE RECORDS SUMMARY | 2023-11-19 10:56 | XMS_ITS | Encounter Summary ---
Author Organization [facility] Address [address] [place] [address] Care Team Providers Care Building Appraiser Name Role Phone Breezy Brown MD Primary Care Provider Augustine Penn MD Unavailable Zachary Boo MD Unavailable Steffany Ortega RN Unavailable [phone] Natalie Bolivar NP Unavailable Jules Miller MD Unavailable [phone] Natalie Bolivar NP Unavailable [phone] Encounter Details Date Type Department Care Team (Late st Contact Info) Description 03/12/2023 [facility] [place] [address] [facility] [address] [place] [phone] Natalie Bolivar, COMPOUNDING ASSISTANT [address] [place] [address] Social History Tobacco Use Types Packs/Day Years [...] Sex Assigned at Female 04/03/2022 9:46 AM WEIGHT CALCULATOR Gender Identity Female 04/03/2022 9:46 AM WEIGHT CALCULATOR Sexual Orientation Straight 04/03/2022 9: 46 AM WEIGHT CALCULATOR documented as of this encounter Plan of Treatment Not on file documented as of this encounter Visit Diagnoses Not on filedocumented in this encounter Care Teams Building Appraiser Relationship Specialty Start Date End Date Breezy Brown MD PCP - General Family Practice 02/09/22 Augustine Penn MD [address] [address] Pediatrics 03/04/16 Zachary Boo MD [address] [place] [address] Dermatology 03/04/16 Steffany Ortega, RONNELL Nurse Coordinator 03/04/16 Natalie Bolivar, COMPOUNDING ASSISTANT [address] [place] [address] Assigned Pediatric Specialist Provider 03/11/21 06/04/23 Jules Miller MD [address] [id number] Assigned PCP 04/13/22 06/04/23 Natalie Bolivar, COMPOUNDING ASSISTANT [address] [place] [address] Assigned Pediatric Specialist Provider 06/13/23 documented as of this encounter
--- OUTSIDE RECORDS SUMMARY | 2023-11-19 10:56 | XMS_ITS | Encounter Summary ---
Author Organization [facility] Address [address] [place] [address] Care Team Providers Care Cyber Forensic Specialist Name Role Phone Breezy Brown MD Primary Care Provider [phone] Jakub Chapin MD Primary Care Provider [phone] Breezy Brown MD Primary Care Provider [phone] Breezy Brown MD Unavailable +[phone] Augustine Penn MD Unavailable +[phone] Zachary Boo MD Unavailable Steffany Ortega RN Unavailable [phone] Natalie Bolivar NP Unavailable +[phone] Augustine Penn MD Unavailable +[phone] Jules Miller MD Unavailable +[phone] Augustine Penn MD Unavailable [phone] Natalie Bolivar NP Unavailable +[phone] Jules Miller MD Unavailable +[phone] Jules Miller MD Unavailable +[phone] Natalie Bolivar NP Unavailable +[phone] Encounter Details Date Type Department Care Team (Late st Contact Info) Description 10/08/2019 MyC Medical Advice [facility] [address] [place] [address] Katelyn Moran Social History Tobacco Use Types Packs/Day Years Used Date Smoking Tobacco: Never Smokeless Tobacco: Never Alcohol Use Standard Drinks/Week Comments Not Asked 0 (1 standard drink = 0.6 oz pur e alcohol) PHQ-2 Answer Date Recorded PHQ-2 Score 0 04/20/2019 Sex and Gender Information Value Date Recorded Sex Assigned at Female 04/03/2022 9:46 AM MULTIPLEX OPERATOR Gender Identity Female 04/03/2022 9:46 AM MULTIPLEX OPERATOR Sexual Orientation Straight 04/03/2022 9: 46 AM MULTIPLEX OPERATOR documented as of this encounter Plan of Treatment Not on file documented as of this encounter Visit Diagnoses Not on filedocumented in this encounter Care Teams Cyber Forensic Specialist Relationship Specialty Start Date End Date Breezy Brown MD PCP - General Family Practice 11/25/16 07/03/21 Jakub Chapin MD PCP - General Family Medicine 07/04/21 02/08/22 Breezy Brown MD PCP - General Family Practice 02/09/22 Breezy Brown MD Family Practice 07/04/21 02/08/22 Augustine Penn MD [address] [place] [address] Pediatrics 03/04/16 Zachary Boo MD [address] [place] [address] Dermatology 03/04/16 Steffany Ortega, RN Nurse Coordinator 03/04/16 Natalie Bolivar, SECURITY CONTROL CENTER OPERATOR [address] [place] [address] Assigned Pediatric Specialist Provider 03/03/20 01/20/21 Augustine Penn MD [address] [address] Assigned PCP 03/31/20 06/10/20 Jules Miller MD [address] [place] [address] Assigned PCP 06/11/20 08/19/20 Augustine Penn MD [address] [address] Assigned PCP 08/20/20 03/03/21 Natalie Bolivar, SECURITY CONTROL CENTER OPERATOR [address] [place] [address] Assigned Pediatric Specialist Provider 03/11/21 06/04/23 Jules Miller MD [address] [address] Assigned PCP 03/04/21 04/12/22 Jules Miller MD 717 [facility] [address] [place] [address] Assigned PCP 04/13/22 06/04/23 Natalie Bolivar NP [address] [place] [address] Assigned Pediatric Specialist Provider 06/13/23 documented as of this encounter
--- OUTSIDE RECORDS SUMMARY | 2023-11-19 10:56 | XMS_ITS | Encounter Summary ---
Author Organization [facility] Address [address] [place] [address] Care Team Providers Care Court Stenographer Name Role Phone Breezy Brown MD Primary Care Provider Jakub Chapin MD Primary Care Provider [phone] Breezy Brown MD Primary Care Provider Breezy Brown MD Unavailable +[phone] Augustine Penn MD Unavailable [phone] Zachary Boo MD Unavailable Steffany Ortega RN Unavailable [phone] Natalie Bolivar NP Unavailable +[phone] Jules Miller MD Unavailable +[phone] Jules Miller MD Unavailable [phone] Natalie Bolivar NP Unavailable [phone] Encounter Details Date Type Department Care Team (Late st Contact Info) Description 06/07/2021 Amanda Panda [facility] [address] [place] [address] Dean, Katelyn T Social History Tobacco Use Types Packs/Day Years Used Date Smoking Tobacco: Never Smokeless Tobacco: Never Alcohol Use Standard Drinks/Week Comments Not Asked 0 (1 standard drink = 0.6 oz pur e alcohol) PHQ-2 Answer Date Recorded PHQ-2 Score 0 07/25/2020 Sex and Gender Information Value Date Recorded Sex Assigned at Female 04/03/2022 9:46 AM HOUSEKEEPER CAREGIVER Gender Identity Female 04/03/2022 9:46 AM HOUSEKEEPER CAREGIVER Sexual Orientation Straight 04/03/2022 9: 46 AM HOUSEKEEPER CAREGIVER documented as of this encounter Plan of Treatment Not on file documented as of this encounter Visit Diagnoses Not on filedocumented in this encounter Care Teams Court Stenographer Relationship Specialty Start Date End Date Breezy Brown MD PCP - General Family Practice 11/25/16 07/03/21 Jakub Chapin MD PCP - General Family Medicine 07/04/21 02/08/22 Breezy Brown MD PCP - General Family Practice 02/09/22 Breezy Brown MD Family Practice 07/04/21 02/08/22 Augustine Penn MD [address] [place] [address]45[address] Pediatrics 03/04/16 Zachary Boo MD [address] [place] [address] Dermatology 03/04/16 Steffany Ortega, RN Nurse Coordinator 03/04/16 Natalie Bolivar, PATIENT INTAKE COORDINATOR [address] [place] [address] Assigned Pediatric Specialist Provider 03/11/21 06/04/23 Jules Miller MD 717 [facility] [address] [place] [address] Assigned PCP 03/04/21 04/12/22 Jules Miller MD 717 [facility] [address] [place] [address] Assigned PCP 04/13/22 06/04/23 Natalie Bolivar, PATIENT INTAKE COORDINATOR [address] [place] [address] Assigned Pediatric Specialist Provider 06/13/23 documented as of this encounter
--- OUTSIDE RECORDS SUMMARY | 2023-11-19 10:56 | XMS_ITS | Encounter Summary ---
Author Organization [facility] Address [address] [place] [address] Care Team Providers Care Taxation Agent Name Role Phone Breezy Brown MD Primary Care Provider Jakub Chapin MD Primary Care Provider [phone] Breezy Brown MD Primary Care Provider [phone] Breezy Brown MD Unavailable [phone] Augustine Penn MD Unavailable + [phone] Zachary Boo MD Unavailable Steffany Ortega RN Unavailable [phone] Natalie Bolivar NP Unavailable [phone] Jules Miller MD Unavailable [phone] Augustine Penn MD Unavailable [phone] Natalie Bolivar NP Unavailable [phone] Jules Miller MD Unavailable [phone] Jules Miller MD Unavailable [phone] Natalie Bolivar NP Unavailable [phone] Reason for Visit * Reason Onset Date Comments Refill Request 07/25/2020 Encounter Details Date Type Department Care Team (Late st Contact Info) Description 07/25/2020 Refill [facility] [place] [address] [facility] [address] [place] [phone] Augustine Penn MD [address] [place] [address] Refill Request Social History Tobacco Use Types Packs/Day Years Used Date Smoking Tobacco: Never Smokeless Tobacco: Never Alcohol Use Standard Drinks/Week Comments Not Asked 0 (1 standard drink = 0.6 oz pur e alcohol) PHQ-2 Answer Date Recorded PHQ-2 Score 0 07/25/2020 Sex and Gender Information Value Date Recorded Sex Assigned at Female 04/03/2022 9:46 AM LOGISTICS TEAM LEADER Gender Identity Female 04/03/2022 9:46 AM LOGISTICS TEAM LEADER Sexual Orientation Straight 04/03/2022 9: 46 AM LOGISTICS TEAM LEADER COVID-19 Exposure Response Date Recorded In the last month, have you been in contact with someone who was confirmed or suspected to have Coronavirus / COVID-19? 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 documented in this encounter Care Teams Taxation Agent Relationship Specialty Start Date End Date Breezy Brown MD PCP - General Family Practice 11/25/16 07/03/21 Jakub Chapin MD PCP - General Family Medicine 07/04/21 02/08/22 Breezy Brown MD PCP - General Family Practice 02/09/22 Breezy Brown MD Family Practice 07/04/21 02/08/22 Augustine Penn MD [address] [address] Pediatrics 03/04/16 Zachary Boo MD [address] [place] [address] Dermatology 03/04/16 Steffany Ortega, RN Nurse Coordinator 03/04/16 Natalie Bolivar AURICULAR ACUPUNCTURIST [address] [place] [address] Assigned Pediatric Specialist Provider 03/03/20 01/20/21 Jules Miller MD [address] [place] [address] Assigned PCP 06/11/20 08/19/20 Augustine Penn MD [address] [address] Assigned PCP 08/20/20 03/03/21 Natalie Bolivar AURICULAR ACUPUNCTURIST [address] [place] [address] Assigned Pediatric Specialist Provider 03/11/21 06/04/23 Jules Miller MD [address] [place] [address] Assigned PCP 03/04/21 04/12/22 Jules Mliler MD [facility] [place] [facility] [address] [place] [address] Assigned PCP 04/13/22 06/04/23 Natalie Bolivar NP [address] [place] [address] Assigned Pediatric Specialist Provider 06/13/23 documented as of this encounter
--- OUTSIDE RECORDS SUMMARY | 2023-11-19 10:56 | XMS_ITS | Encounter Summary ---
Author Organization [facility] Address [address] [place] [address] Care Team Providers Care Windows Vmware Administrator Name Role Phone Breezy Brown MD Primary Care Provider Jakub Chapin MD Primary Care Provider [phone] Breezy Brown MD Primary Care Provider Breezy Brown MD Unavailable [phone] Augustine Penn MD Unavailable [phone] Zachary Boo MD Unavailable Steffany Ortega RN Unavailable [phone] Natalie Bolivar NP Unavailable [phone] Jules Miller MD Unavailable [phone] Jules Miller MD Unavailable [phone] Natalie Bolivar NP Unavailable [phone] Encounter Details Date Type Department Care Team (Late st Contact Info) Description 07/03/2021 [facility] [place] [address] [facility] [address] [place] [address] Augustine Penn MD [address] [place] [address] Social History Tobacco Use Types Packs/Day Years Used Date Smoking Tobacco: Never Smokeless Tobacco: Never Alcohol Use Standard Drinks/Week Comments Not Asked 0 (1 standard drink = 0.6 oz pur e alcohol) PHQ-2 Answer Date Recorded PHQ-2 Score 0 07/25/2020 Sex and Gender Information Value Date Recorded Sex Assigned at Female 04/03/2022 9:46 AM HYBRID TESTER Gender Identity Female 04/03/2022 9:46 AM HYBRID TESTER Sexual Orientation Straight 04/03/2022 9: 46 AM HYBRID TESTER documented as of this encounter Plan of Treatment Not on file documented as of this encounter Visit Diagnoses Not on filedocumented in this encounter Care Teams Windows Vmware Administrator Relationship Specialty Start Date End Date Breezy Brown MD PCP - General Family Practice 11/25/16 07/03/21 Jakub Chapin MD PCP - General Family Medicine 07/04/21 02/08/22 Breezy Brown MD PCP - General Family Practice 02/09/22 Breezy Brown MD Family Practice 07/04/21 02/08/22 Augustine Penn MD [address] [facility] [address] [place] [address] Pediatrics 03/04/16 Zachary Boo MD [address] [place] [address] Dermatology 03/04/16 Steffany Ortega, RN Nurse Coordinator 03/04/16 Natalie Bolivar, FLOOR SERVICE WORKER SPRING [address] [place] [address] Assigned Pediatric Specialist Provider 03/11/21 06/04/23 Jules Miller MD [address] [place] [address] Assigned PCP 03/04/21 04/12/22 Jules Miller MD [address] [place] [address] Assigned PCP 04/13/22 06/04/23 Natalie Bolivar, FLOOR SERVICE WORKER SPRING [address] [place] [address] Assigned Pediatric Specialist Provider 06/13/23 documented as of this encounter
--- OUTSIDE RECORDS SUMMARY | 2023-11-19 10:56 | XMS_ITS | Encounter Summary ---
Author Organization [facility] Address [address] [place] [address] Care Team Providers Care Soil Specialist Name Role Phone Jakub Chapin MD Primary Care Provider [phone] Breezy Brown MD Primary Care Provider Breezy Brown MD Unavailable [phone] Augustine Penn MD Unavailable [phone] Zachary Boo MD Unavailable Steffany Ortega RN Unavailable [phone] Natalie Bolivar NP Unavailable [phone] Jules Miller MD Unavailable [phone] Jules Miller MD Unavailable [phone] Natalie Bolivar EAP CONSULTANT Unavailable [phone] Encounter Details Date Type Department Care Team (Late st Contact Info) Description 07/06/2021 [facility] [place] [address] [facility] [address] [place] [address] Augustine Penn MD [address] [place], [place] [address] Social History Tobacco Use Types Packs/Day Years Used Date Smoking Tobacco: Never Smokeless Tobacco: Never Alcohol Use Standard Drinks/Week Comments Not Asked 0 (1 standard drink = 0.6 oz pur e alcohol) PHQ-2 Answer Date Recorded PHQ-2 Score 0 07/25/2020 Sex and Gender Information Value Date Recorded Sex Assigned at Female 04/03/2022 9:46 AM SOLID WASTE ANALYST Gender Identity Female 04/03/2022 9:46 AM SOLID WASTE ANALYST Sexual Orientation Straight 04/03/2022 9: 46 AM SOLID WASTE ANALYST documented as of this encounter Plan of Treatment Not on file documented as of this encounter Visit Diagnoses Not on filedocumented in this encounter Care Teams Soil Specialist Relationship Specialty Start Date End Date Jakub Chapin MD PCP - General Family Medicine 07/04/21 02/08/22 Breezy Brown MD PCP - General Family Practice 02/09/22 Breezy Brown MD Family Practice 07/04/21 02/08/22 Augustine Penn MD [address] [address] Pediatrics 03/04/16 Zachary Boo MD [address] [place] [address] Dermatology 03/04/16 Steffany Ortega, RN Nurse Coordinator 03/04/16 Natalie Bolivar EAP CONSULTANT [address] [place] [address] Assigned Pediatric Specialist Provider 03/11/21 06/04/23 Jules Miller MD [address] [place] [address] Assigned PCP 03/04/21 04/12/22 Jules Miller MD [address] [address] Assigned PCP 04/13/22 06/04/23 Natalie Bolivar NP [address] [place] [address] Assigned Pediatric Specialist Provider 06/13/23 documented as of this encounter
--- OUTSIDE RECORDS SUMMARY | 2023-11-19 10:56 | XMS_ITS | Encounter Summary ---
Author Organization [facility] Address [address] [place] [address] Care Team Providers Care Lpn Name Role Phone Breezy Brown MD Primary Care Provider [phone] Jakub Chapin MD Primary Care Provider [phone] Breezy Brown MD Primary Care Provider [phone] Breezy Brown MD Unavailable [phone] Augustine Penn MD Unavailable [phone] Zachary Boo MD Unavailable Steffany Ortega RN Unavailable [phone] Natalie Bolivar NP Unavailable [phone] Augustine Penn MD Unavailable [phone] Jules Miller MD Unavailable [phone] Augustine Penn MD Unavailable [phone] Natalie Bolivar NP Unavailable [phone] Jules Miller MD Unavailable +[phone] Jules Miller MD Unavailable [phone] Natalie Bolivar NP Unavailable [phone] Encounter Details Date Type Department Care Team (Late st Contact Info) Description 01/20/2020 MyC Medical Advice [facility]ty [facility] [place] [address] [facility] [address] [place] [address] Augustine Penn MD [address] [place] [address] Social History Tobacco Use Types Packs/Day Years Used Date Smoking Tobacco: Never Smokeless Tobacco: Never Alcohol Use Standard Drinks/Week Comments Not Asked 0 (1 standard drink = 0.6 oz pur e alcohol) PHQ-2 Answer Date Recorded PHQ-2 Score 0 04/20/2019 Sex and Gender Information Value Date Recorded Sex Assigned at Female 04/03/2022 9:46 AM PREPARATORY TECHNICIAN Gender Identity Female 04/03/2022 9:46 AM PREPARATORY TECHNICIAN Sexual Orientation Straight 04/03/2022 9: 46 AM PREPARATORY TECHNICIAN COVID-19 Exposure Response Date Recorded In the last month, have you been in contact with someone who was confirmed or suspected to have Coronavirus / COVID-19? No / Unsure 01/13/2020 12:24 PM CDT documented as of this encounter Plan of Treatment Not on file documented as of this encounter Visit Diagnoses Not on filedocumented in this encounter Care Teams Lpn Relationship Specialty Start Date End Date Breezy Brown MD PCP - General Family Practice 11/25/16 07/03/21 Jakub Chapin MD PCP - General Family Medicine 07/04/21 02/08/22 Breezy Brown MD PCP - General Family Practice 02/09/22 Breezy Brown MD Family Practice 07/04/21 02/08/22 Augustine Penn MD [address] [address] Pediatrics 03/04/16 Zachary Boo MD [address] [place] [address] Dermatology 03/04/16 Steffany Ortega, RONNELL Nurse Coordinator 03/04/16 Natalie Bolivar, TRAVEL AGENT [address] [place] [address] Assigned Pediatric Specialist Provider 03/03/20 01/20/21 Augustine Penn MD [address] [address] Assigned PCP 03/31/20 06/10/20 Jules Miller MD [address] [place] [address] Assigned PCP 06/11/20 08/19/20 Augustine Penn MD [address] [address] Assigned PCP 08/20/20 03/03/21 Natalie Bolivar, TRAVEL AGENT [address] [place] [address] Assigned Pediatric Specialist Provider 03/11/21 06/04/23 Jules Miller MD [address] [place] [address] Assigned PCP 03/04/21 04/12/22 Jules Miller MD 717 [facility] [place] [address] [place] [address] Assigned PCP 04/13/22 06/04/23 Natalie Bolivar NP [address] [place] [address] Assigned Pediatric Specialist Provider 06/13/23 documented as of this encounter
--- OUTSIDE RECORDS SUMMARY | 2023-11-19 10:56 | XMS_ITS | Encounter Summary ---
Author Organization [facility] Address [address] [place] [address] Care Team Providers Care Plant Etiologist Name Role Phone Breezy Brown MD Primary Care Provider [phone] Jakub Chapin MD Primary Care Provider [phone] Breezy Brown MD Primary Care Provider [phone] Breezy Brown MD Unavailable +[phone] Augustine Penn MD Unavailable [phone] Zachary Boo MD Unavailable Steffany Ortega RN Unavailable [phone] Natalie Bolivar NP Unavailable [phone] Augustine Penn MD Unavailable [phone] Jules Miller MD Unavailable [phone] Augustine Penn MD Unavailable [phone] Natalie Bolivar NP Unavailable [phone] Jules Miller MD Unavailable [phone] Jules Miller MD Unavailable [phone] Natalie Bolivar NP Unavailable [phone] Encounter Details Date Type Department Care Team (Late st Contact Info) Description 01/07/2020 MyC Medical Advice [facility]ty [facility] [place] [address] [facility] [address] [place] [address] Augustine Penn MD [address] [place] [address] Social History Tobacco Use Types Packs/Day Years Used Date Smoking Tobacco: Never Smokeless Tobacco: Never Alcohol Use Standard Drinks/Week Comments Not Asked 0 (1 standard drink = 0.6 oz pur e alcohol) PHQ-2 Answer Date Recorded PHQ-2 Score 0 04/20/2019 Sex and Gender Information Value Date Recorded Sex Assigned at Female 04/03/2022 9:46 AM SENIOR MEDIA BUYER Gender Identity Female 04/03/2022 9:46 AM SENIOR MEDIA BUYER Sexual Orientation Straight 04/03/2022 9: 46 AM SENIOR MEDIA BUYER COVID-19 Exposure Response Date Recorded In the last month, have you been in contact with someone who was confirmed or suspected to have Coronavirus / COVID-19? No / Unsure 01/03/2020 11:44 AM CDT documented as of this encounter Plan of Treatment Not on file documented as of this encounter Visit Diagnoses Not on filedocumented in this encounter Care Teams Plant Etiologist Relationship Specialty Start Date End Date Breezy Brown MD PCP - General Family Practice 11/25/16 07/03/21 Jakub Chapin MD PCP - General Family Medicine 07/04/21 02/08/22 Breezy Brown MD PCP - General Family Practice 02/09/22 Breezy Brown MD Family Practice 07/04/21 02/08/22 Augustine Penn MD [address] [address] Pediatrics 03/04/16 Zachary Boo MD [address] [place] [address] Dermatology 03/04/16 Steffany Ortega, RONNELL Nurse Coordinator 03/04/16 Natalie Bolivar, FIELD ACCOUNT MANAGER [address] [place] [address] Assigned Pediatric Specialist Provider 03/03/20 01/20/21 Augustine Penn MD [address] [address] Assigned PCP 03/31/20 06/10/20 Jules Miller MD [address] [place] [address] Assigned PCP 06/11/20 08/19/20 Augustine Penn MD [address] [address] Assigned PCP 08/20/20 03/03/21 Natalie Bolivar, FIELD ACCOUNT MANAGER [address] [place] [address] Assigned Pediatric Specialist Provider 03/11/21 06/04/23 Jules Miller MD [address] [place] [address] Assigned PCP 03/04/21 04/12/22 Jules Miller MD 717 [facility] [address] [place] [address] Assigned PCP 04/13/22 06/04/23 Natalie Bolivar NP [address] [place] [address] Assigned Pediatric Specialist Provider 06/13/23 documented as of this encounter
--- OUTSIDE RECORDS SUMMARY | 2023-11-19 10:56 | XMS_ITS | Referral Summary ---
Author Organization [facility] Address [address] [place] [address] Care Team Providers Care Stocklayer Name Role Phone Breezy Brown MD Primary Care Provider [phone] Augustine Penn MD Unavailable Zachary Boo MD Unavailable [phone] Steffany Ortega RN Unavailable [phone] Natalie Bolivar ASSET PROTECTION GREETER Unavailable [phone] Encounters Date Type Department Care Team Description 10/27/2023 [facility] [place] [address] [place] [address] Natalie Bolivar, ASSET PROTECTION GREETER Refill Request from Last 3 Months Allergies Active Allergy Reactions Criticality Noted Date [...] times daily or as directed. 250 strip 08/18/2017 Active ketone blood test (PRECISION XTRA KETONE) STRPIndications:Ty pe 1 diabetes mellitus with hyperglycemia (H) Check for ketones when two consecutive blood sugars are greater than 300 and/or at time of sickness/vomiting 20 each 05/27/2018 Active insulin glargine (BASAGLAR KWIKPEN) 100 UNIT/ML penIndications:Typ e 1 diabetes mellitus with hyperglycemia (H) Inject 30 units daily when off of insulin pump. 15 mL 6 08/25/2019 Active insulin pen needle (BD CHAU [...] pe 1 diabetes mellitus with hyperglycemia (H) [place] 1 spray (3 mg) in nostril as [...] status 07/20/2019 Overview: T:slim with Control IQ half-way (current) use of insulin 07/20/2019 Trini's thyroiditis [...] updated by automated process. Provider to review Immunizations Name Administration Dates Next Due DTAP [...] Tdap (Adult) Unspecified Formulation 10/19/2012 Varicella 08/18/2012,12/18/2009 Social History Tobacco Use Types Packs/Day Years [...] Sex Assigned at Female 04/03/2022 9:46 AM AUDIT ASSOCIATE Gender Identity Female 04/03/2022 9:46 AM AUDIT ASSOCIATE Sexual Orientation Straight 04/03/2022 9: 46 AM AUDIT ASSOCIATE Last Filed Vital Signs Vital Sign Reading Time Taken Comments Blood Pressure 72/38 06/28/2022 11:04 AM AUDIT ASSOCIATE Pulse 91 06/28/2022 11:04 AM AUDIT ASSOCIATE Temperature 36.7 ??C (98.1 ??F) 03/15/2013 1:02 PM CS T Respiratory Rate 16 03/15/2013 1:02 PM AUDIT ASSOCIATE Oxygen Saturation 100% 03/15/2013 7:22 AM AUDIT ASSOCIATE Inhaled Oxygen Concentration - - Weight 63.3 kg (139 lb 8.8 oz) 06/28/2022 11:04 AM AUDIT ASSOCIATE Height 164.5 cm (5' 4.76) 06/28/2022 11:[address] Body Mass Index 23.39 06/28/2022 11:04 AM AUDIT ASSOCIATE Plan of Treatment Not on file Procedures Procedure Name Priority Date/Time Associated Diagnosis Comments T4 FREE Routine 06/28/2022 12:15 PM AUDIT ASSOCIATE Type 1 diabetes mellitus with hyperglycemia (H) ALBUMIN RANDOM URINE QUANTITATIVE Routine 06/28/2022 12:15 PM AUDIT ASSOCIATE Type 1 diabetes mellitus with hyperglycemia (H) LIPID PROFILE Routine 06/28/2022 12:15 PM AUDIT ASSOCIATE Type 1 diabetes mellitus with hyperglycemia (H) HEMOGLOBIN A1C POCT Routine 06/28/2022 1 1:01 AM AUDIT ASSOCIATE Type 1 diabetes mellitus with hyperglycemia (H) EYE EXAM - HIM SCAN 05/22/2018 1 2:00 AM AUDIT ASSOCIATE BASIC METABOLIC PANEL Routine 09/16/2008 11:31 AM CDT from Last 3 Months or Most Recently Relevant to Health Maintenance Results * T4 free (06/28/2022 12:15 PM AUDIT ASSOCIATE) Free T4 1.63 0.90 - 1.70 ng/dL 06/28/2022 12:51 PM AUDIT ASSOCIATE LABORATORY Blood STRUCTURE OF RIGHT UPPER LIMB / Unknown Venipuncture / Unknown 06/28/2022 12:15 PM AUDIT ASSOCIATE 06/28/2022 12:15 PM AUDIT ASSOCIATE Natalie Bolivar NP LAB - BLOOD ORDERAB LES [facility] LABORATORY [facility] [address] Lab (1st floor, no room number) [place] [address], [facility] [phone] * Albumin Random Urine Quantitative with Creat Ratio (06/28/2022 12:15 PM AUDIT ASSOCIATE) Creatinine Urine mg/dL 58.0 mg/dL 06/28/2022 7:25 PM AUDIT ASSOCIATE [facility] Comment:The reference ranges have not been established in urine creatinine. The results should be integrated into the clinical context for interpretation. Albumin Urine mg/L <12.0 mg/L 2022 7:25 PM AUDIT ASSOCIATE [facility] Comment:The reference ranges have not been established in urine albumin. The results should be integrated into the clinical context for interpretation. Albumin Urine mg/g Cr 06/28/2022 7:25 PM AUDIT ASSOCIATE [facility] Comment: Unable to calculate, urine [...] control, and institution of therapy with an lnqjbvyzshx-tjvmziqlnr-lwbtqw (TIFFANIE) inhibitor (if the patient can tolerate it). ?? Urine MID-STREAM URINE SPECIMEN / Unknown Non-blood Collection / Unknown 06/28/2022 12:15 PM AUDIT ASSOCIATE 06/28/2022 12:26 PM AUDIT ASSOCIATE Natalie Bolivar NP LAB - URINE ORDERAB LES [facility] [address] [place] [address], [facility] [phone] * (ABNORMAL) Lipid Profile (06/28/2022 12:15 PM AUDIT ASSOCIATE) Cholesterol 207(H) <200 mg/dL 06/28/2022 5:24 PM AUDIT ASSOCIATE [facility] Triglycerides 85 <150 mg/dL 06/28/2022 5:24 PM AUDIT ASSOCIATE [facility] Direct Measure HDL 69 >=50 mg/dL 06/28/2022 5:24 PM AUDIT ASSOCIATE [facility] LDL Cholesterol Calculated 121(H) <=100 mg/dL 06/28/2022 5:24 PM AUDIT ASSOCIATE [facility] Non HDL Cholesterol 138(H) <130 mg/dL 06/28/2022 5:24 PM AUDIT ASSOCIATE [facility] Blood STRUCTURE OF RIGHT UPPER LIMB / Unknown Venipuncture / Unknown 06/28/2022 12:15 PM AUDIT ASSOCIATE 06/28/2022 12:15 PM AUDIT ASSOCIATE Narrative [facility] - 06/28/2022 5:24 PM AUDIT ASSOCIATE Cholesterol Desirable: ??<200 mg/dL Triglycerides Normal: ??Less [...] LAB - BLOOD ORDERAB LES [facility] [address] [place] [address], [facility] [phone] * (ABNORMAL) Hemoglobin A1c POCT (06/28/2022 11:01 AM AUDIT ASSOCIATE) Hemoglobin A1C POCT 8.5 4.3 - <5.7 % Whole blood 06/28/2022 11:0 1 AM AUDIT ASSOCIATE Natalie M Bolivar ASSET PROTECTION GREETER LAB - ENTER/EDIT PO CT * EYE EXAM - HIM SCAN (05/22/2018 12:00 AM AUDIT ASSOCIATE) 05/22/2018 Provider Outside OTHER * (ABNORMAL) Basic [...] Recently Relevant to Health Maintenance Care Teams Stocklayer Relationship Specialty Start Date End Date Breezy Brown MD PCP - General Family Practice 02/09/22 Augustine Penn MD [address] [address] Pediatrics 03/04/16 Zachary Boo MD [address] [place] [address] Dermatology 03/04/16 Steffany Ortega, RN Nurse Coordinator 03/04/16 Natalie Bolivar, ASSET PROTECTION GREETER [address] [place] [address] Assigned Pediatric Specialist Provider 06/13/23
--- OUTSIDE RECORDS SUMMARY | 2023-11-19 10:56 | XMS_ITS | Encounter Summary ---
Author Organization [facility] Address [address] [place] [address] Care Team Providers Care Concrete Fence Builder Name Role Phone Augustine Penn MD Primary Care Provider Breezy Brown MD Primary Care Provider Jakub Chapin MD Primary Care Provider [phone] Breezy Brown MD Primary Care Provider [phone] Breezy Brown MD Unavailable [phone] Natalie Bolivar RN Unavailable [phone] Augustine Penn MD Unavailable [phone] Zachary Boo MD Unavailable Steffany Ortega RN Unavailable [phone] Natalie Bolivar ENGINEERING SPECIALIST TECHNICIAN Unavailable [phone] Augustine Penn MD Unavailable [phone] Jules Miller MD Unavailable [phone] Augustine Penn MD Unavailable [phone] Natalie Bolivar NP Unavailable [phone] Jules Miller MD Unavailable [phone] Jules Miller MD Unavailable Natalie Bolivar ENGINEERING SPECIALIST TECHNICIAN Unavailable [phone] Encounter Details Date Type Department Care Team (Late st Contact Info) Description 09/01/2016 [facility] [place] [facility] [address] [place] [id number] Augustine Penn MD [address] [address] Social History Tobacco Use Types Packs/Day Years Used Date Smoking Tobacco: Never Smokeless Tobacco: Never Alcohol Use Standard Drinks/Week Comments Not Asked 0 (1 standard drink = 0.6 oz pur e alcohol) Sex and Gender Information Value Date Recorded Sex Assigned at Female 04/03/2022 9:46 AM REFRIGERATION OPERATOR Gender Identity Female 04/03/2022 9:46 AM REFRIGERATION OPERATOR Sexual Orientation Straight 04/03/2022 9: 46 AM REFRIGERATION OPERATOR documented as of this encounter Plan of Treatment Not on file documented as of this encounter Visit Diagnoses Not on filedocumented in this encounter Care Teams Concrete Fence Builder Relationship Specialty Start Date End Date Augustine Penn MD [address] [address] PCP - General Pediatrics 08/20/16 11/24/16 Breezy Brown MD [facility] [address] [address] PCP - General Family Practice 11/25/16 07/03/21 Jakub Chapin MD [facility] [address] [address] PCP - General Family Medicine 07/04/21 02/08/22 Breezy Brown MD [address] [address] PCP - General Family Practice 02/09/22 Breezy Brown MD [address] [address] Family Practice 07/04/21 02/08/22 Natalie Bolivar, [place] [address] Marketing Services Vice President 08/31/13 08/26/18 Augustine Penn MD [address] [address] Pediatrics 03/04/16 Zachary Boo MD [address] [place] [address] Dermatology 03/04/16 Steffany Ortega RN Nurse Coordinator 03/04/16 Natalie Bolivar, ENGINEERING SPECIALIST TECHNICIAN [address] [place] [address] Assigned Pediatric Specialist Provider 03/03/20 01/20/21 Augustine Penn MD [address] [address] Assigned PCP 03/31/20 06/10/20 Jules Miller MD [address] [id number] Assigned PCP 06/11/20 08/19/20 Augustine Penn MD [address] [facility] [address] [place] [address] Assigned PCP 08/20/20 03/03/21 Natalie Bolivar, ENGINEERING SPECIALIST TECHNICIAN [address] [place] [address] Assigned Pediatric Specialist Provider 03/11/21 06/04/23 Jules Miller MD [address] [place] [facility] [address] [place] [address] Assigned PCP 03/04/21 04/12/22 Jules Miller MD [address] [facility] [address] [place] [address] Assigned PCP 04/13/22 06/04/23 Natalie Bolivar, ENGINEERING SPECIALIST TECHNICIAN [address] [address] Assigned Pediatric Specialist Provider 06/13/23 documented as of this encounter
== END 2023-11-19 10:53 | disposition home or self-care (01) ==
PROVIDERS: PCP Family Medicine; Visit Provider Family Medicine
DX: E10.9 Type 1 diabetes mellitus without complications (principal); E55.9 Vitamin D deficiency, unspecified; E03.9 Hypothyroidism, unspecified
CPT/HCPCS: 80048; 84439; 84443

== ENCOUNTER 2024-07-21 13:11 | Outpatient (CLI) | payer OTHER, SELFPAY | END 2024-07-21 13:12 | disposition home or self-care (01) | PROVIDERS: PCP Family Medicine; Visit Provider Family Medicine | DX: E03.9 Hypothyroidism, unspecified (principal); E10.9 Type 1 diabetes mellitus without complications; E55.9 Vitamin D deficiency, unspecified | CPT/HCPCS: 80048; 80061; 84439; 84443 ==

== ENCOUNTER 2024-12-21 11:46 | Outpatient (CLI) | payer OTHER, SELFPAY | END 2024-12-21 11:47 | disposition home or self-care (01) | LOC: FBOREF 11:47 | PROVIDERS: PCP Family Medicine; Visit Provider Family Medicine | DX: E03.9 Hypothyroidism, unspecified (principal) | CPT/HCPCS: 84439; 84443 ==